=== PATIENT | female | born 2000 ===

== ENCOUNTER 2025-04-10 09:48 | Emergency (ER) | payer OTHER, SELFPAY ==
[2025-04-10 10:04] VITALS: BP 139/74; PULSE 130; RESP 20; TEMP 36.7; O2SAT 98; BMI 28.8
[2025-04-10 12:26] LABS: Add Manual Diff / Slide Review NO; Hematocrit 41.5 % (36-46); Hemoglobin 14.1 g/dL (12.0-16.0); Lymphocytes Absolute Auto 1000 /uL (1100-4500); Mean Corpuscular HGB Conc 34.0 % (30-36); Mean Corpuscular Hemoglobin 34.8 PG (26-34); Mean Corpuscular Volume 102.1 fL (80-100); Platelet Count 214 X10^3/uL (150-400)
[2025-04-10 12:39] LABS: Alanine Aminotransferase 192 IU/L (<35); Albumin 5.3 g/dL (3.5-5.0); Albumin Globulin Ratio 1.5 (1.0-2.8); Alkaline Phosphatase 83 U/L (38-126); Blood Urea Nitrogen 8 mg/dL (7-17); Calcium 9.5 mg/dL (8.4-10.2); Carbon Dioxide 19 mmol/L (22-32); Chloride 99 mmol/L (98-107); Estimated Glomerular Filt Rate > 60 mL/min (>60); Globulin 3.5 g/dL (1.7-4.1); Glucose 71 mg/dL (70-99); HEMOLYSIS 17 (0-50); Lipase 36 U/L (23-300); Potassium 3.7 mmol/L (3.4-5.1); Sodium 138 mmol/L (137-145); Total Protein 8.8 g/dL (6.3-8.2)
[2025-04-10 12:57] LABS: INR 1.0 (0.9-1.3); Prothrombin Time 11.3 SECONDS (9.4-12.5)
[2025-04-10 12:58] VITALS: BP 133/60; PULSE 77; RESP 15; TEMP 36.3; O2SAT 98
[2025-04-10 12:59] LABS: PTT Partial Thromboplastin Tim 26 SECONDS (25.1-36.5)
--- NOTE | 2025-04-10 13:08 | PC.NURSE ---
RYLIE Figueredo gives patient paper resources for detox centers.
--- NOTE | 2025-04-10 14:01 | DI.US.S_ITS ---
PROCEDURE: US ABDOMEN LIMITED INDICATIONS: RUQ pain TECHNIQUE: Real-time focused scanning was performed of the abdomen, with image documentation. COMPARISON: None. FINDINGS: The liver demonstrates normal size. The liver demonstrates generalized moderately increased echogenicity. This decreases ultrasound sensitivity for detection of hepatic masses. No findings of gallstones or sludge are seen. The gallbladder wall is not thickened, measuring 3 mm or less. No specific pericholecystic fluid is seen. The sonographic Charles sign is negative. There is no biliary dilatation, the common bile duct measures 3 mm. No significant pancreatic abnormality is seen on these images. IMPRESSION: The gallbladder demonstrates a normal sonographic appearance. No biliary dilatation is seen. The liver demonstrates increased echogenicity. This finding is nonspecific, yet it is most commonly attributed to fatty infiltration. Dictated by: Ramirez Santos M.D. on 04/10/2025 at 13:33 Approved by: Ramirez Santos M.D. on 04/10/2025 at 13:33
[2025-04-10 14:54] VITALS: BP 141/73; PULSE 94; RESP 17; O2SAT 95
[2025-04-10 15:20] LABS: Ethanol (ETOH) 190 mg/dL (<10)
--- NOTE | 2025-04-10 15:21 | PC.NURSE ---
Patient has questions about medications and treatment and length of time in the Emergency department. Provider Shana Gandara made aware and goes to speak with the patient. Provider Juliocesar at bedside talking with patient.
[2025-04-10 15:39] VITALS: BP 127/58; PULSE 97; RESP 16; O2SAT 95
[2025-04-10] MEDS: THIAMINE 100 MG TABLET PO (15:42)
[2025-04-10 15:51] LABS: Magnesium 1.6 mg/dL (1.6-2.3)
[2025-04-10 16:25] VITALS: PULSE 89
[2025-04-10 17:53] VITALS: BP 143/81; PULSE 94; RESP 18; O2SAT 99
--- NOTE | 2025-04-10 18:48 | ED_ITS ---
HPI - Alcohol General Chief Complaint: Toxicology Problem Stated Complaint: sent from [facility] for toxicology work up Time Seen by Provider: 04/10/25 10:22 Source: patient Mode of arrival: Ambulatory History of Present Illness HPI narrative: 24-year-old female presents to the ED with 2 days of right upper quadrant pain. Patient states that she has been abusing alcohol over the last 1-2 years and had started drinking quite heavily throughout the day. Patient states that she used to do more than 15 shots over the course of the day, starting in the morning with 2-4 shots. Patient states that she has to keep drinking through the day to avoid the shakes and withdrawal symptoms. Patient endorses withdrawal symptoms as shakes, sweating, headache, nausea, anxiety, agitation. Patient only drinks vodka. Patient seems self aware and very much wants to detox from alcohol. Patient states that she has been trying to reduce the drinking according to a taper chart that she saw online. Patient states that she is now on 10 shots during the day, however drinks quite a bit during the evenings and night. 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 Patient states that over the last 2 days, she has been experiencing right upper quadrant discomfort. Patient also states that she is bruising easily, especially since she has dogs knocking about her, she bruises very easily. Patient states she came into the ED today to get her labs checked. Patient denies fever, chills, chest pain, shortness of breath, seizures. Related Data Previous Rx's ?Medication ?Instructions ?Recorded chlordiazepoxide HCl 25 mg capsule 50 mg (2 x 25 mg) P O Q4H PRN 04/10/25 alcohol withdrawal #20 caps folic acid 800 mcg tablet 0.8 mg PO DAILY 30 days #30 tabs 04/10/25 pyridoxine (vitamin B6) 50 mg 50 mg PO DAILY 14 days # 14 tabs 04/10/25 tablet thiamine HCl (vitamin B1) 100 mg 100 mg PO DAILY 30 da ys #30 tabs 04/10/25 tablet Allergies Allergy/AdvReac Type Severity Reaction Status Date / Time iodine Allergy Mild Blisters Verified 04/10/25 10:04 Review of Systems Constitutional Constitutional: Denies chills, Reports excessive sweating, Denies fatigue, Denies fever(s), Denies frequent falls, Reports headache(s), Denies lethargy and Denies weakness Eyes Eyes: Denies change in vision, Denies eye discharge, Denies irritation and Denies loss of vision ENT Ears, Nose, Mouth, and Throat: Denies change in voice, Denies dizziness, Reports headache(s), Denies neck pain, Denies sore throat and Denies throat swelling Cardiovascular Cardiovascular: Denies chest pain, Denies irregular heart rhythm, Denies lightheadedness, Denies palpitations, Denies dyspnea, Denies dyspnea on exertion and Denies orthopnea Respiratory Respiratory: Denies cough, Denies dyspnea, Denies dyspnea on exertion and Denies wheezing Gastrointestinal Gastrointestinal: Reports abdominal pain, Denies change in bowel habits, Denies diarrhea, Reports nausea and Denies vomiting Musculoskeletal Musculoskeletal: Denies neck pain and Denies numbness Integumentary/Breasts Skin/Breast: Denies pruritus, Denies erythema, Denies rash, Reports unusual bruising and Denies wounds Neurologic Neurologic: Denies behavioral changes, Denies confusion, Denies dizziness, Denies frequent falls, Reports headache(s), Denies loss of vision, Denies numbness, Reports tremor(s) and Denies weakness Psychiatric Psychiatric: Reports anxiety, Denies behavioral changes, Denies confusion, Reports depression, Denies homicidal ideation and Denies suicidal ideation Endocrine Endocrine: Reports excessive sweating, Denies fatigue, Denies flushing and Denies palpitations Hematologic/Lymphatic Hematologic/Lymphatic: Denies easy bruising Allergic/Immunologic Allergic/Immunologic: Denies urticaria, Denies throat swelling and Denies wheezing Patient History tobacco type: cigarettes and vaping Exam Narrative Exam Narrative: Const General:?cooperative, anxious, restless [facility] Head:?normal to inspection Ears:?hearing grossly normal bilaterally Nose:?external nose normal Face and sinus:?normal facial exam and sinuses nontender Mouth:?oral mucosae normal Throat:?posterior oropharynx normal Eyes General:?appearance normal, both eyes and all related structures Neck Neck:?normal visual inspection and no lymphadenopathy noted Resp Effort & Inspection:?normal respiratory effort Auscultation:?clear to auscultation bilaterally Cardio Rate:? Tachycardic Rhythm:?regular rhythm Neuro General:?patient alert, patient awake and patient oriented x3; anxious, restless; tremors Initial Vital Signs Initial Vital Signs: Vital Signs Temperature 98.0 F 04/10/25 10:04 Pulse Rate 130 H 04/10/25 10:04 Respiratory Rate 20 04/10/25 10:04 Blood Pressure 139/74 04/10/25 10:04 Pulse Oximetry 98 04/10/25 10:04 Oxygen Delivery Method Room Air 04/10/25 10:04 Course Orders Ordered: ED Orders 04/10/25 12:10 Complete Blood Count AUTO DIFF Stat Comprehensive Metabolic Panel Stat Ethanol (ETOH) Stat Lipase Stat Magnesium Stat PT [Prothrombin Time INR] Stat PTT Partial Thromboplastin Matthias Stat 04/10/25 14:01 US abdomen limited Stat Discontinued Medications Lorazepam (Lorazepam 1 Mg Tablet) 2 mg PO NOW ONE Stop: 04/10/25 15:46 Last Admin: 04/10/25 15:42 Dose: 2 mg Documented By: VASHTI Ondansetron HCl (Ondansetron 4 Mg/2 Ml Inj) 4 mg IV NOW PRN PRN Reason: Nausea And Vomiting Ondansetron HCl (Ondansetron 4 Mg Odt) 4 mg PO NOW PRN PRN Reason: Nausea And Vomiting Thiamine HCl (Thiamine 100 Mg Tablet) 100 mg PO NOW ONE Stop: 04/10/25 15:11 Last Admin: 04/10/25 15:42 Dose: 100 mg Documented By: VASHTI Vital Signs Vital signs: Vital Signs - 8 hr 04/10/25 12:58 04/10/25 14:54 04/10/25 15:39 Temperature 97.3 F L Pulse Rate 77 94 H 97 H Respiratory Rate 15 17 16 Blood Pressure 133/60 141/73 H 127/58 L Pulse Oximetry 98 95 95 Oxygen Delivery Method Room Air Room Air Room Air 04/10/25 16:25 04/10/25 17:53 Temperature Pulse Rate 89 94 H Respiratory Rate 18 Blood Pressure 143/81 H Pulse Oximetry 99 Oxygen Delivery Method Room Air MDM - Alcohol Lab Data 04/10/25 12:10 04/10/25 12:10 Labs: Lab Results 04/10/25 Range/Units 12:10 WBC 6.0 (4.5-11.0) X10^3/uL RBC 4.06 (4.0-5.2) X10^6/uL Hgb 14.1 (12.0-16.0) g/dL Hct 41.5 (36-46) % MCV 102.1 H (80-100) fL MCH 34.8 H (26-34) PG MCHC 34.0 (30-36) % RDW 13.0 (11.6-14.8) % Plt Count 214 (150-400) X10^3/uL Neut % (Auto) 70.7 (50-75) % Lymph % (Auto) 16.5 L (25-40) % [place] % (Auto) 11.3 (3-14) % Eos % (Auto) 0.5 L (2-4) % Baso % (Auto) 1.0 (0-2) % Neut # (Auto) 4300 (9448-0794) /uL Lymph # (Auto) 1000 L (4898-7687) /uL [place] # (Auto) 700 (0-900) /uL Eos # (Auto) 0 (0-450) /uL Baso # (Auto) 100 (0-100) /uL PT 11.3 (9.4-12.5) SECONDS INR 1.0 (0.9-1.3) APTT 26 (25.1-36.5) SECONDS Sodium 138 (137-145) mmol/L Potassium 3.7 (3.4-5.1) mmol/L Chloride 99 (98-107) mmol/L Carbon Dioxide 19 L (22-32) mmol/L BUN 8 (7-17) mg/dL Creatinine 0.65 (0.52-1.04) mg/dL Estimated GFR > 60 (>60) mL/min BUN/Creatinine Ratio 12.3 (6-22) Glucose 71 (70-99) mg/dL Calcium 9.5 (8.4-10.2) mg/dL Magnesium 1.6 (1.6-2.3) mg/dL Total Bilirubin 0.8 (0.2-1.3) mg/dL AST 179 H (14-36) IU/L ALT 192 H (<35) IU/L Alkaline Phosphatase 83 (38-126) U/L Total Protein 8.8 H (6.3-8.2) g/dL Albumin 5.3 H (3.5-5.0) g/dL Globulin 3.5 (1.7-4.1) g/dL Albumin/Globulin Ratio 1.5 (1.0-2.8) Lipase 36 (23-300) U/L Ethyl Alcohol 190 H (<10) mg/dL Point of Care Testing Test Results Negative Urine Dip Bedside Urine Glucose Negative Bedside Urine Bilirubin - Negative Bedside Urine Ketone +/- 5 Urine Specific [place] 1.010 Bedside Urine Occult Blood +/- Bedside Urine pH 6.0 Bedside Urine Protein - Negative Bedside Urine Urobilinogen - Negative Bedside Urine Nitrite - Negative Bedside Urine Leukocytes - Negative Esterase MDM Narrative Medical decision making narrative: 24-year-old female presents to the ED with 2 days of right upper quadrant pain. Concern for alcohol withdrawal versus need for alcohol detox versus biliary etiology of RUQ pain versus alcoholic liver versus other. Will obtain labs, TSH, UA, urine , coags, ultrasound abdomen. Labs show elevated transaminases with AST 179 and ALT of 192. Total protein and albumin are elevated to 8.8 and 5.3 respectively. ETOH elevated to 190. All other labs unremarkable. Negative urine hCG. UA without UTI. Patient's CIWA was 10 during ED presentation. Positive for headache, nausea, anxiety, restlessness, tremors. Patient was given a dose of Ativan with good improvement to CIWA of 5. Patient prescribed a taper of Librium to take at home over the next 4 days. Patient was given some inpatient and outpatient alcohol detox resources and she agrees to review and get in touch with 1 of them. Discussed alcohol withdrawal symptoms and dangers of alcohol withdrawal. ED return precautions discussed with patient. Patient verbalized understanding. Medical records reviewed: Yes Discharge Plan Departure Patient Disposition: Home Clinical Impression: Alcohol withdrawal syndrome Instructions: Alcohol Withdrawal Activity Restrictions/Additional Instructions: You were evaluated in the ED today for symptoms regarding alcohol use. It appears that you have elevated liver enzymes, most likely due to the alcohol use. The ultrasound shows a fatty liver, but no other acute abnormalities. In the emergency room, you did experience several symptoms of alcohol withdrawal. You were given a dose of lorazepam with good results. We appreciate your wish to wean off the alcohol. You are being prescribed chlordiazepoxide (Librium) as a taper to taper over 4 days. This medication will allow you to wean off the alcohol in a safe way while avoiding alcohol withdrawal symptoms. Weaning off of alcohol without this medication could cause your alcohol withdrawal symptoms to worsen and you could experienced seizures, coma, . You have received some information on outpatient and inpatient resources for alcohol detoxification. Please also reviewed those and and seek further care. Return to the emergency room if you have worsening symptoms. Prescriptions: New chlordiazepoxide HCl 25 mg capsule 50 mg PO Q4H PRN (Reason: alcohol withdrawal) Qty: 20 0RF Rx Instructions: Taper is as follows: ?Day 1: 50 mg orally every 6 hours (200 mg total daily dose) ?Day 2: 50 mg orally every 8 hours (150 mg total daily dose) ?Day 3: 50 mg orally every 12 hours (100 mg total daily dose) ?Day 4: 50 mg once at night (50 mg total daily dose) thiamine HCl (vitamin B1) 100 mg tablet 100 mg PO DAILY 30 Days Qty: 30 0RF folic acid 800 mcg tablet 0.8 mg PO DAILY 30 Days Qty: 30 0RF pyridoxine (vitamin B6) 50 mg tablet 50 mg PO DAILY 14 Days Qty: 14 0RF Referrals: Miscellaneous,Doctor, [Primary Care Provider, Medical] Stand Alone Forms: Patient Portal/API
== END 2025-04-10 17:56 | disposition home or self-care (01) ==
PROVIDERS: Family Medicine; Emergency Provider Student in an Organized Health Care Education/Training Program
DX: F10.239 Alcohol dependence with withdrawal, unspecified (principal); Y90.6 Blood alcohol level of 120-199 mg/100 ml
CPT/HCPCS: 36415; 76705; 80053; 80320; 81003; 81025; 83690; 83735; 85025; 85610; 85730; 99284

== ENCOUNTER 2025-09-08 12:07 | Emergency (ER) | payer OTHER, SELFPAY ==
[2025-09-08 12:31] VITALS: BP 163/110; PULSE 120; RESP 18; TEMP 36.6; O2SAT 96; BMI 28.3
[2025-09-08 13:04] LABS: Add Manual Diff / Slide Review NO; Hematocrit 42.0 % (36-46); Hemoglobin 14.5 g/dL (12.0-16.0); Lymphocytes Absolute Auto 1200 /uL (1100-4500); Mean Corpuscular HGB Conc 34.6 % (30-36); Mean Corpuscular Hemoglobin 34.9 PG (26-34); Mean Corpuscular Volume 101.1 fL (80-100); Platelet Count 150 X10^3/uL (150-400)
[2025-09-08 13:09] LABS: INR 1.0 (0.9-1.3); Prothrombin Time 11.1 SECONDS (9.4-12.5)
[2025-09-08 13:11] LABS: PTT Partial Thromboplastin Tim 28 SECONDS (25.1-36.5)
[2025-09-08 13:13] LABS: Alanine Aminotransferase 78 IU/L (<35); Albumin 5.2 g/dL (3.5-5.0); Albumin Globulin Ratio 1.3 (1.0-2.8); Alkaline Phosphatase 91 U/L (38-126); Blood Urea Nitrogen 11 mg/dL (7-17); Calcium 9.7 mg/dL (8.4-10.2); Carbon Dioxide 23 mmol/L (22-32); Chloride 102 mmol/L (98-107); Estimated Glomerular Filt Rate > 60 mL/min (>60); Ethanol (ETOH) 232 mg/dL (<10); Globulin 4.1 g/dL (1.7-4.1); Glucose 87 mg/dL (70-99); HEMOLYSIS < 15 (0-50); Potassium 3.7 mmol/L (3.4-5.1); Sodium 141 mmol/L (137-145); Total Protein 9.3 g/dL (6.3-8.2)
--- NOTE | 2025-09-08 14:58 | ED_ITS ---
HPI - GI Bleed General Chief complaint: GI Bleed Stated complaint: Prefers to tell nurse Time Seen by Provider: 09/08/25 14:38 Source: patient Mode of arrival: Ambulatory History of Present Illness HPI Narrative: 25-year-old female drinks heavily everyday presents with rectal bleeding past week. Patient denies dizziness lightheadedness abdominal pain chest pain shortness of breath back pain constipation diarrhea urinary complaints. She passed big rectal ball earlier that contain blood in earlier today and got concerned. Other than what is stated 14 point review of system is negative. Related Data Previous Rx's ?Medication ?Instructions ?Recorded pantoprazole 40 mg granules 40 mg PO DAILY #30 ea 08/15 03/08 delayed-release for susp in packet (Protonix) Allergies Allergy/AdvReac Type Severity Reaction Status Date / Time iodine Allergy Mild Blisters Verified 09/08/25 12:32 Review of Systems Review of Systems ROS Unobtainable: All systems reviewed & are unremarkable except as noted in HPI and below Patient History Social History Smoking Status: Current every day smoker Smoking Status: Current every day smoker tobacco type: cigarettes and vaping Exam Narrative Exam Narrative: GENERAL: [25] year old patient appears stated age. Well-developed patient, in mild distress. HEAD: Atraumatic. Normocephalic. EYES: Pupils equal round and reactive. Extraocular motions intact. No scleral icterus. No injection or drainage. ENT: Nose without bleeding, purulent drainage. Throat without erythema, tonsillar hypertrophy or exudate. Airway patent. NECK: Trachea midline. Non tender CARDIOVASCULAR: Regular rate and rhythm without murmurs, gallops, or rubs. RESPIRATORY: Clear to auscultation. Breath sounds equal bilaterally. No wheezes, rales, or rhonchi. GASTROINTESTINAL: Abdomen soft, non-tender, nondistended. Rectal: No external hemorrhoids or fissure seen. Trace guaiac positive EXTREMITIES: No edema or joint tenderness. BACK: Nontender without deformity or crepitance. No flank tenderness. NEURO: AOx3. SKIN: No rash or erythema of visible areas Initial Vital Signs Initial Vital Signs: Vital Signs Temperature 97.9 F 09/08/25 12:31 Pulse Rate 120 H 09/08/25 12:31 Respiratory Rate 18 09/08/25 12:31 Blood Pressure 163/110 H 09/08/25 12:31 Pulse Oximetry 96 09/08/25 12:31 Oxygen Delivery Method Room Air 09/08/25 12:31 Course Orders Ordered: ED Orders 09/08/25 12:42 Type and Screen Stat 09/08/25 12:52 Complete Blood Count AUTO DIFF Stat Comprehensive Metabolic Panel Stat ETOH [Ethanol (ETOH)] Stat PTT Partial Thromboplastin Matthias Stat Prothrombin Time INR Stat Ondansetron HCl (Ondansetron 4 Mg/2 Ml Inj) 4 mg IV NOW PRN PRN Reason: Nausea And Vomiting Ondansetron HCl (Ondansetron 4 Mg Odt) 4 mg PO NOW PRN PRN Reason: Nausea And Vomiting Vital Signs Vital signs: Vital Signs - 8 hr 09/08/25 12:31 Temperature 97.9 F Pulse Rate 120 H Respiratory Rate 18 Blood Pressure 163/110 H Pulse Oximetry 96 Oxygen Delivery Method Room Air MDM - GI Bleed Lab Data 09/08/25 12:52 09/08/25 12:52 Labs: Lab Results 09/08/25 Range/Units 12:52 WBC 5.4 (4.5-11.0) X10^3/uL RBC 4.16 (4.0-5.2) X10^6/uL Hgb 14.5 (12.0-16.0) g/dL Hct 42.0 (36-46) % MCV 101.1 H (80-100) fL MCH 34.9 H (26-34) PG MCHC 34.6 (30-36) % RDW 13.7 (11.6-14.8) % Plt Count 150 (150-400) X10^3/uL Neut % (Auto) 63.1 (50-75) % Lymph % (Auto) 22.2 L (25-40) % [place] % (Auto) 11.8 (3-14) % Eos % (Auto) 1.6 L (2-4) % Baso % (Auto) 1.3 (0-2) % Neut # (Auto) 3400 (2356-5334) /uL Lymph # (Auto) 1200 (7755-0507) /uL [place] # (Auto) 600 (0-900) /uL Eos # (Auto) 100 (0-450) /uL Baso # (Auto) 100 (0-100) /uL PT 11.1 (9.4-12.5) SECONDS INR 1.0 (0.9-1.3) APTT 28 (25.1-36.5) SECONDS Sodium 141 (137-145) mmol/L Potassium 3.7 (3.4-5.1) mmol/L Chloride 102 (98-107) mmol/L Carbon Dioxide 23 (22-32) mmol/L BUN 11 (7-17) mg/dL Creatinine 0.62 (0.52-1.04) mg/dL Estimated GFR > 60 (>60) mL/min BUN/Creatinine Ratio 17.7 (6-22) Glucose 87 (70-99) mg/dL Calcium 9.7 (8.4-10.2) mg/dL Total Bilirubin 0.6 (0.2-1.3) mg/dL AST 129 H (14-36) IU/L ALT 78 H (<35) IU/L Alkaline Phosphatase 91 (38-126) U/L Total Protein 9.3 H (6.3-8.2) g/dL Albumin 5.2 H (3.5-5.0) g/dL Globulin 4.1 (1.7-4.1) g/dL Albumin/Globulin Ratio 1.3 (1.0-2.8) Ethyl Alcohol 232 H (<10) mg/dL Point of Care Testing Test Results Negative Urine Dip Bedside Urine Glucose Negative Bedside Urine Bilirubin - Negative Bedside Urine Ketone - Negative Urine Specific [place] 1.000 Bedside Urine Occult Blood +/- Bedside Urine pH 6 Bedside Urine Protein - Negative Bedside Urine Urobilinogen - Negative Bedside Urine Nitrite - Negative Bedside Urine Leukocytes - Negative Esterase MDM Narrative Medical decision making narrative: All lab work, vital signs, nurse triage note, medication list, previous ER visits, and all imaging studies reviewed. WBC 5.4 hemoglobin 14.5 platelets 150 INR 1.0 CMP normal except AST 129 ALT 78. Alcohol 232. Patient given Protonix here and Narcan prepack on discharge. Differential diagnosis ulcer, GERD, hemorrhoids. DC home on Protonix rx and to follow up PCP next week if no improvement in symptoms. Discharge Plan Departure Patient Disposition: Home Clinical Impression: Alcohol abuse, PRB (rectal bleeding) Instructions: DI for Rectal Bleeding Activity Restrictions/Additional Instructions: Return with new or worsening symptoms. Take medicines as directed. Stop Drinking. Follow up with PCP next week. Prescriptions: New pantoprazole [Protonix] [address] for susp in packet 40 mg PO DAILY Qty: 30 0RF Referrals: Miscellaneous,Doctor, MD [Primary Care Provider, Medical] Stand Alone Forms: Patient Portal/API
--- NOTE | 2025-09-08 16:25 | PC.NURSE ---
pt mov ed from RP to 3
[2025-09-08] MEDS: ONDANSETRON 4 MG/2 ML INJ IV (16:33)
[2025-09-08] MEDS: NALOXONE 4 MG NASAL SPRAY MISC (16:34)
[2025-09-08] MEDS: PANTOPRAZOLE DR 20 MG TABLET 40 MG PO (16:34)
[2025-09-08 16:55] VITALS: BP 163/98; PULSE 89; RESP 16; O2SAT 97
== END 2025-09-08 16:56 | disposition home or self-care (01) ==
PROVIDERS: Emergency Provider Family Medicine
DX: F10.10 Alcohol abuse, uncomplicated (principal); K62.5 Hemorrhage of anus and rectum
CPT/HCPCS: 36415; 80053; 80320; 81003; 81025; 85025; 85610; 85730; 86850; 86900; 86901; 96374; 99284; A9270; J2405